=== PATIENT | male | born 1950 | race Caucasian/White ===

== ENCOUNTER 2019-06-02 13:58 | Emergency (ER) | payer OTHER, MEDICAID ==
[~2019-06-02] VITALS: Ht 170.2 cm; Wt 64.9 kg
[2019-06-02 14:22] VITALS: Ht 170.2 cm; Wt 64.9 kg
[2019-06-02 16:10] VITALS: BP 135/86
== END 2019-06-02 16:11 | disposition home or self-care (01) ==
LOC: ED 13:58
DX: S33.5XXA Sprain of ligaments of lumbar spine, initial encounter (principal); M41.86 Other forms of scoliosis, lumbar region; V43.52XA Car driver injured in collision with other type car in traffic accident, initial encounter; Y93.I9 Activity, other involving external motion; Y92.488 Other paved roadways as the place of occurrence of the external cause; Y99.8 Other external cause status
CPT/HCPCS: J1885